=== PATIENT | male | born 1965 | race Caucasian/White ===

== ENCOUNTER → 2018-01-17 | Outpatient (CLI) | payer BC ==
--- NOTE | 2018-01-17 08:07 | RAD ---
EXAM DESCRIPTION: Pelvis CLINICAL HISTORY: 52 years Male, PAIN IN RIGHT HIP COMPARISON: None. FINDINGS: Bones of the pelvic ring appear intact. Normal proximal femurs. No significant hip joint space narrowing is evident. Lower L-spine and sacrum appear intact. Normal SI joints. No visceral abnormality. IMPRESSION: Negative. Electronically signed by: Patrick Downing MD 01/17/2018 8:06 AM CDT
== END ==
LOC: RAD 07:41
PROVIDERS: ATTEND Orthopaedic Surgery
DX: M25.551 Pain in right hip (principal); M25.561 Pain in right knee

== ENCOUNTER → 2020-03-22 | Outpatient (CLI) | payer BC | LOC: GMA MATASK 10:55 | PROVIDERS: ATTEND Family Medicine | DX: Z12.5 Encounter for screening for malignant neoplasm of prostate (principal) ==